=== PATIENT | female | born 1970 | race Caucasian/White ===

== ENCOUNTER 2017-12-13 11:07 | Emergency (ER) | payer MEDICAID ==
[~2017-12-13] VITALS: Ht 162.6 cm; Wt 49.0 kg
[~2017-12-13 11:07] MED LIST: CEPH-571 PO; HYDR-569 PO; MUPI15CR TOP; NAPR-1154 PO; NEOM10SO7 RIGHT EAR; NO HOME MEDS
[2017-12-13] MEDS ORDERED: MUPI22OI30 TOP (11:42)
[2017-12-13] MEDS ORDERED: SULF1TAB49 PO (11:42)
[2017-12-13 11:55] VITALS: BP 135/89
== END 2017-12-13 11:55 | disposition home or self-care (01) ==
LOC: ER 11:07
DX: J32.8 Other chronic sinusitis (principal); F15.90 Other stimulant use, unspecified, uncomplicated; Z90.710 Acquired absence of both cervix and uterus; Z56.0 Unemployment, unspecified; Z88.0 Allergy status to penicillin
CPT/HCPCS: 99283

== ENCOUNTER 2018-08-10 17:13 | Emergency (ER) | payer MEDICAID ==
[~2018-08-10] VITALS: Ht 162.6 cm; Wt 47.0 kg
[~2018-08-10 17:13] MED LIST changes: +HYDR-4383 PO; -HYDR-569 PO
[2018-08-10 17:28] VITALS: BP 156/90
--- NOTE | 2018-08-10 18:41 | NUR ---
MURTAZA DUDLEY AT BEDSIDE WITH PT
[2018-08-10] MEDS ORDERED: BACI1PAC7 TOP (18:58)
== END 2018-08-10 19:15 | disposition home or self-care (01) ==
LOC: ER 17:14
DX: K13.79 Other lesions of oral mucosa (principal); F15.90 Other stimulant use, unspecified, uncomplicated; Z88.0 Allergy status to penicillin; Z79.2 Long term (current) use of antibiotics; Z79.899 Other long term (current) drug therapy; Z90.710 Acquired absence of both cervix and uterus; Z56.0 Unemployment, unspecified
CPT/HCPCS: 99282

== ENCOUNTER → 2018-08-19 | Emergency (ER) | payer MEDICAID, OTHER ==
[~2018-08-19] VITALS: Ht 165.1 cm; Wt 50.0 kg
[~2018-08-19] MED LIST changes: +BACI1PAC7 TOP; +CEPH-572 PO; +CefTRIAXone 2gm/D5W 50ml 50 ML IV ONE; +normal saline 1000ML IV soln IV ONE
[2018-08-19] MEDS: naloxone 0.4 mg/ml inj IV PRN ×2 (06:37→07:56)
--- NOTE | 2018-08-19 06:47 | NUR ---
Patient is awake and responsive since narcan. Patient is still confused.
[2018-08-19 06:59] LABS: ALANINE AMINOTRANSFERASE 31 U/L (12-78); ALBUMIN 3.6 G/DL (3.4-5.0); ALBUMIN/GLOBULIN RATIO 0.9 (1.1-1.5); ALKALINE PHOSPHATASE 61 IU/L (46-116); ANION GAP 7 (8-16); ASPARTATE AMINO TRANSFERASE 22 U/L (10-37); BASOPHILS # (AUTO) 0.1 X10'3 (0-0.2); BASOPHILS % (AUTO) 0.6 % (0-1); BILIRUBIN,TOTAL 0.3 MG/DL (0.1-1.0); BLOOD UREA NITROGEN 25 MG/DL (7-18); BUN/CREATININE RATIO 21.2 (6.6-38.0); CALCIUM 10.4 MG/DL (8.5-10.1); CHLORIDE 108 MMOL/L (99-107); CREATININE 1.18 MG/DL (0.40-0.90); EOSINOPHILS # (AUTO) 0.4 X10'3 (0-0.9); EOSINOPHILS % (AUTO) 3.8 % (0-6); GLUCOSE 122 MG/DL (70-104); HEMATOCRIT 38.6 % (35.0-45.0); HEMOGLOBIN 12.6 g/dl (12.0-16.0); LYMPHOCYTES # (AUTO) 4.9 X10'3 (1.1-4.8); LYMPHOCYTES % (AUTO) 48.2 % (21-51); MEAN CORPUSCULAR HEMOGLOBIN 29.2 PG (27.0-31.0); MEAN CORPUSCULAR HGB CONC 32.5 g/dL (33.0-36.5); MEAN CORPUSCULAR VOLUME 89.6 FL (78-98); MEAN PLATELET VOLUME 7.9 FL (7.4-10.4); MONOCYTES # (AUTO) 0.9 X10'3 (0-0.9); MONOCYTES % (AUTO) 8.8 % (2-12); NEUTROPHILS % (AUTO) 38.6 % (42-75); PLATELET COUNT 293 X10'3 (140-440); POTASSIUM 3.8 MMOL/L (3.5-5.1); RED BLOOD COUNT 4.31 X10'6 (4.20-5.60); RED CELL DISTRIBUTION WIDTH 14.7 % (11.5-14.5); SODIUM 141 MMOL/L (135-145); TOTAL CARBON DIOXIDE 26.4 MMOL/L (24-32); TOTAL PROTEIN 7.4 G/DL (6.4-8.2); WHITE BLOOD COUNT 10.3 X10'3 (4.5-11.0); eGFR 49 ML/MIN
[2018-08-19 07:01] LABS: URINE HCG NEGATIVE (NEG)
[2018-08-19 07:08] LABS: ETHANOL < 0.010 GM/DL (0.0-0.010)
[2018-08-19 07:09] LABS: CLARITY,URINE CLEAR (Clear); COLOR,URINE YELLOW (Yellow); GLUCOSE, URINE NEGATIVE (Neg); KETONES,URINE NEGATIVE (Neg); LEUKOCYTE ESTERASE ,URINE NEGATIVE (Neg); NITRITES, URINE POSITIVE (Neg); OCCULT BLOOD,URINE MODERATE (Neg); PH,URINE 5.5 (4.8-8.0); PROTEIN,URINE 100 mg/dl (Neg); UROBILINOGEN,URINE 0.2 E.U/dL (0.2-1.0)
[2018-08-19 07:12] LABS: URINE AMPHETAMINE SCREEN POSITIVE (Neg); URINE BARBITUATE SCREEN NEGATIVE (Neg); URINE BENZODIAZEPINES SCREEN NEGATIVE (Neg); URINE CANNABINOID SCREEN NEGATIVE (Neg); URINE COCAINE SCREEN NEGATIVE (Neg); URINE METHADONE SCREEN NEGATIVE (Neg); URINE OPIATE SCREEN POSITIVE (Neg); URINE PHENCYCLIDINE SCREEN NEGATIVE (Neg)
[2018-08-19 07:24] LABS: UA COLLECTION TYPE STRAIGHT CATH
[2018-08-19 07:28] LABS: FINE GRANULAR CAST 0-3 /LPF (NEGATIVE); HYALINE CASTS 0-3 /LPF (NEGATIVE); MUCUS STRANDS FEW /LPF (Neg); SQUAMOUS EPITHELIAL CELL,UR MODERATE /LPF (FEW); TRANSITIONAL EPI CELLS,URINE FEW /HPF
[2018-08-19 07:31] LABS: RENAL CELLS, URINE FEW /HPF
[2018-08-19 07:33] LABS: BACTERIA,URINE 3+ /HPF (Neg)
[2018-08-19 08:29] VITALS: BP 128/66
--- NOTE | 2018-08-19 08:31 | NUR ---
patient given sack lunch patient is eating.
== END | disposition home or self-care (01) ==
LOC: ER 06:29
DX: R41.82 Altered mental status, unspecified (principal); N39.0 Urinary tract infection, site not specified; E03.9 Hypothyroidism, unspecified; F11.10 Opioid abuse, uncomplicated; F15.10 Other stimulant abuse, uncomplicated; F19.10 Other psychoactive substance abuse, uncomplicated; Z88.0 Allergy status to penicillin; Z79.899 Other long term (current) drug therapy; Z56.0 Unemployment, unspecified
CPT/HCPCS: 36415; 80053; 80305; 80320; 81001; 81025; 84443; 85025; 93005; 96365; 96375; 96376; 99284; J0696; J2310; J7030